=== PATIENT | male | born 1970 | race Caucasian/White ===

== ENCOUNTER 2019-04-04 07:23 | Inpatient (IN) | payer OTHER ==
[2019-04-04] MEDS ORDERED: Clindamycin/D5W 900 mg/50 ml Premix Bag ONE (07:57)
[2019-04-04] MEDS ORDERED: Levofloxacin 500 mg/D5W 100 ml Premix Bag ONE (07:57)
[2019-04-04 08:24] LABS: Hemoglobin 15.9 g/dL (14.0-18.0); Mean Corpuscular HGB CONC 33.9 g/dL (32.0-36.0); Mean Corpuscular Hemoglobin 28.8 pg (27.0-31.0); Mean Corpuscular Volume 84.8 fL (78.0-98.0); Mean Platelet Volume 9.1 fL (7.4-10.4); Platelet Count 198 thou/uL (130-400); RBC Distribution Width 12.4 % (11.5-14.5); Red Blood Cell (RBC) Count 5.54 mill/uL (4.70-6.10); White Blood Cell (WBC) Count 9.2 thou/uL (4.8-10.8)
[2019-04-04 08:50] LABS: Anion Gap 15 mmol/L (10-20); BUN (Urea Nitrogen) 15 mg/dL (8.9-20.6); Calc. Creatinine Clearance 244 mL/min (70-130); Calcium 9.2 mg/dL (7.8-10.44); Carbon Dioxide 23 mmol/L (22-29); Chloride 102 mmol/L (98-107); Estimated GFR-MDRD Greater than 90; Glucose 193 mg/dL (70-105); Potassium 4.3 mmol/L (3.5-5.1); Sodium 136 mmol/L (136-145)
[2019-04-04] MEDS ORDERED: Fentanyl 250 MCG/5 ML VIAL ONE (09:25)
[2019-04-04] MEDS ORDERED: Ketamine 50 MG/ML (10ML VIAL) ONE (09:25)
[2019-04-04] MEDS ORDERED: HYDROmorphone 2 MG/ML VIAL ONE (09:26)
[2019-04-04] MEDS ORDERED: Sodium Chloride 0.9% 10 ML ONE (09:28)
[2019-04-04] MEDS ORDERED: ePHEDrine/0.9% NaCl/PF SYRINGE 50 mg/10 ml ONE (09:32)
[2019-04-04] MEDS ORDERED: Lidocaine 1% PF 5 ML VIAL ONE (09:32)
[2019-04-04] MEDS ORDERED: PHENYLEPHRINE-NS 100 MCG/ML 10 ML SYRINGE ONE (09:32)
[2019-04-04] MEDS ORDERED: Dexamethasone 20 MG/5 ML VIAL ONE (09:32)
[2019-04-04] MEDS ORDERED: Ondansetron PF 4 MG/2 ML Vial ONE (09:32)
[2019-04-04] MEDS ORDERED: PROPOFOL 200 MG/20 ML VIAL ONE (09:32)
[2019-04-04] MEDS ORDERED: Rocuronium Bromide 10 MG/ML (10ML VIAL) ONE (09:32)
[2019-04-04] MEDS ORDERED: Lidocaine 4% Topical Sol 50 ML BOT ONE (09:34)
[2019-04-04] MEDS ORDERED: Phenylephrine HCL 10 MG/ML VIAL ONE (10:12)
[2019-04-04] MEDS ORDERED: SUGAMMADEX SODIUM 500 MG/5 ML VIAL ONE (10:37)
[2019-04-04] MEDS ORDERED: Fentanyl 100 MCG/2 ML VIAL ONE (11:31)
--- NOTE | 2019-04-04 12:04 | OP ---
DATE OF PROCEDURE: 04/04/2019 ASSOCIATE PROGRAMMER ANALYST: Sesar Doyle PA-C PROCEDURE PERFORMED: Attempted exploration of spinal fusion and attempted removal of hardware, attempted anterior cervical diskectomy and fusion, C3 through C5, interbody arthrodesis, intervertebral biomechanical device, local morselized autograft, demineralized bone matrix, attempted anterior titanium fixation, C3 through C5. Of note, procedure aborted. DESCRIPTION OF PROCEDURE: The patient was brought to the operating room and intubated. He was positioned supine with the head in modest extension on a gel-filled donut. It was immediately evident given the very large body habitus, the short and squat neck size and the positioning of the previous incision that the access would be quite difficult. We performed a longitudinal right-sided incision along the sternocleidomastoid muscle. We immediately encountered dense scar. We were able to dissect through the scar inferiorly to access the cervical plate, which was identified successfully. Above this in the soft tissues, the esophagus could not be freely mobilized from the surrounding soft tissues including the vascular structures. Extensive efforts were made to mobilize the esophagus, but we could not be convinced that we could adequately dissect the esophagus safely. Ligaclips was used in several locations for vascular structures adherent to the esophagus. I concluded that we could not access C3 through C5 safely given these superior adhesions of the esophagus and we elected therefore not to remove the plate or proceed with the procedure any further. The wound was then extensively irrigated and MAC hemostasis was secured. The wound was closed in anatomic layers over drain. Job ID: [id number]
[2019-04-04] MEDS ORDERED: HYDROcodone/Acetaminophen 10/325 mg Tablet ONE (12:19)
[2019-04-04] MEDS ORDERED: tiZANidine HCl 4 MG TAB PO PRN (13:35)
[2019-04-04] MEDS ORDERED: Promethazine HCl 12.5 MG SUPP PR PRN (13:35)
[2019-04-04] MEDS ORDERED: Milk Of Magnesia 30 ML UDCUP PO PRN (13:35)
[2019-04-04] MEDS ORDERED: Mag-Al 1200 mg/1200 mg/30 ML UDCUP PO PRN (13:35)
[2019-04-04] MEDS ORDERED: diphenhydrAMINE 50 MG/ML VIAL IVP PRN (13:35)
[2019-04-04] MEDS ORDERED: HYDROcodone/Acetaminophen 10/325 mg Tablet PO PRN (13:35)
[2019-04-04] MEDS ORDERED: Morphine 4 MG/ML VIAL SLOW IVP PRN (13:35)
[2019-04-04] MEDS ORDERED: traMADol HCl 50 MG TAB PO PRN ×2 (13:35)
[2019-04-04] MEDS ORDERED: Promethazine 25 MG TAB PO PRN (13:35)
[2019-04-04] MEDS ORDERED: Ondansetron PF 4 MG/2 ML Vial IVP PRN (13:35)
[2019-04-04] MEDS ORDERED: Promethazine HCl 25 MG/ML VIAL IM PRN (13:35)
[2019-04-04] MEDS ORDERED: diphenhydrAMINE 25 MG CAP PO PRN (13:35)
[2019-04-04] MEDS ORDERED: Morphine 2 MG/ML SYRINGE SLOW IVP PRN (13:38)
[2019-04-04 14:05] VITALS: BMI 47.5
[2019-04-04] MEDS ORDERED: Insulin Regular 300 UNITS/3 ML VIAL SC PRN ×2 (14:11)
[2019-04-04] MEDS ORDERED: Dextrose 50% Abboject 50 ML SYRINGE SLOW IVP PRN (14:11)
[2019-04-04] MEDS ORDERED: Dextrose 5% in Water 1,000 ML IV PRN (14:11)
[2019-04-04] MEDS: Sodium Chloride 0.9% 1,000 ML IV SCH (15:54)
[2019-04-04] MEDS: Clindamycin/D5W 900 MG in Premix Bag 1 BAG IVPB SCH ×2 (15:55→22:59)
[2019-04-04] MEDS: HYDROcodone/Acetaminophen 10/325 mg Tablet PO PRN ×2 (15:59→22:58)
[2019-04-04] MEDS: metFORMIN 500 MG TAB PO SCH (16:01)
[2019-04-04] MEDS: Insulin Regular 300 UNITS/3 ML VIAL SC PRN (17:54)
[2019-04-04] MEDS ORDERED: Insulin Glargine 60 UNITS in Pre-Filled Syringe 1 EACH SC SCH (21:00)
[2019-04-04] MEDS ORDERED: Insulin Glargine 80 UNITS in Pre-Filled Syringe 1 EACH SC SCH (21:00)
[2019-04-04] MEDS ORDERED: CYCLOBENZAPRINE PO SCH (21:00)
[2019-04-04] MEDS ORDERED: [UNRECOGNIZED DRUG - OTHER] PO SCH (21:00)
[2019-04-04] MEDS ORDERED: Insulin Glargine 35 UNITS in Pre-Filled Syringe 1 EACH SC SCH (21:00)
[2019-04-04] MEDS: Pregabalin 50 MG CAP PO SCH (21:42)
--- NOTE | 2019-04-04 22:33 | PDOC.HOSPP ---
- Subjective Encounter Date: 04/04/19 Encounter Time: 15:00 Subjective: Patient seen and examined for med mngt. No CP or SOB. Pain controlled. Takes 80 units of Lantus BID. No new complaints. No overnight events - Objective Vital Signs & Weight: Vital Signs (12 hours) Temp Pulse Resp BP Pulse Ox 04/04/19 19:50 98.7 F 90 16 156/74 H 92 L 04/04/19 13:00 97.7 F 90 20 164/92 H 93 L Weight Weight 350 lb Result Diagrams: 04/04/19 08:05 04/04/19 08:05 Additional Labs: Accuchecks 04/04/19 04/04/19 21:05 17:33 POC Glucose 271 H 267 H EKG Reviewed by me: Yes (SR) Hospitalist ROS - Review of Systems Respiratory: denies: cough, dry, shortness of breath, hemoptysis, SOB with excertion, pleuritic pain, sputum, wheezing, other Cardiovascular: denies: chest pain, palpitations, orthopnea, paroxysmal noc. dyspnea, edema, light headedness, other - Medication Medications: Active Medications Generic Name Dose Route Start Last Admin Trade Name Freq PRN Reason Stop Dose Admin Hydrocodone Bitart/Acetaminophen 2 tab 04/04/19 13:35 04/04/19 15:59 [place] 10/325 PO 2 tab Q4H PRN Administration PAIN (4-6) Fentanyl 25 mcg 04/04/19 13:45 04/04/19 17:50 Duragesic TD 25 mcg Q48H EVELIN Administration Sodium Chloride 1,000 mls @ 75 mls/hr 04/04/19 13:35 04/04/19 15:54 Normal Saline 0.9% IV Not Given .[id number] EVELIN Clindamycin Phosphate/Dextrose 50 mls @ 100 mls/hr 04/04/19 16:00 04/04/19 15 :55 900 mg/ Device IVPB 50 mls 0000,0800,1600 EVELIN Administration Insulin Glargine 60 units/ 0.6 mls @ 0 mls/hr 04/04/19 21:00 04/04/19 21:43 Miscellaneous Medication SC 0.6 mls BID EVELIN Administration Insulin Human Regular 0 units 04/04/19 14:11 04/04/19 21:43 Humulin R SC 3 unit .BEDTIME SLIDING SC PRN Administration Bedtime Correctional Scale Insulin Human Regular 0 units 04/04/19 14:37 04/04/19 17:54 Humulin R SC 9 unit .AGGRESSIVE SLIDING PRN Administration Aggressive Correctional Scale Metformin HCl 1,000 mg 04/04/19 17:00 04/04/19 16:01 Glucophage PO 1,000 mg BID-WM EVELIN Administration Pregabalin 200 mg 04/04/19 21:00 04/04/19 21:42 Lyrica PO 200 mg BID EVELIN Administration - Exam General Appearance: NAD Heart: RRR, no gallops Respiratory: CTAB, no rales Gastrointestinal: soft, normal bowel sounds Extremities: no edema Hosp A/P - Plan DVT proph w/SCDs DM2 HLD Chronic pain Morbid obesity BMI 47.5 PLAN: Reduce Lantus dose to 60 units BID tonight - will increase to home dose in AM Cont Statins Pain control PT IS DVT prophylaxis
[2019-04-05] MEDS: Sodium Chloride 0.9% 1,000 ML IV SCH (01:24)
[2019-04-05] MEDS: Insulin Regular 300 UNITS/3 ML VIAL SC PRN ×2 (05:21→12:33)
[2019-04-05] MEDS: HYDROcodone/Acetaminophen 10/325 mg Tablet PO PRN ×3 (05:24→14:52)
[2019-04-05] MEDS ORDERED: Tamsulosin HCl 0.4 MG CAP PO SCH (06:00)
[2019-04-05] MEDS: Clindamycin/D5W 900 MG in Premix Bag 1 BAG IVPB SCH (08:40)
[2019-04-05] MEDS: Pregabalin 50 MG CAP PO SCH (08:41)
[2019-04-05] MEDS: metFORMIN 500 MG TAB PO SCH (08:41)
[2019-04-05] MEDS ORDERED: Insulin Glargine 80 UNITS in Pre-Filled Syringe 1 EACH SC SCH (09:00)
[2019-04-05] MEDS ORDERED: Insulin Glargine 35 UNITS in Pre-Filled Syringe 1 EACH SC SCH (09:00)
[2019-04-05] MEDS ORDERED: INSULIN GLARGINE HUM REC ANLOG 80 UNIT SC SCH (09:00)
[2019-04-05] MEDS ORDERED: Atorvastatin Calcium 20 MG TAB PO SCH (09:00)
[2019-04-05 12:23] VITALS: BP 128/83; TEMP 97.9
--- NOTE | 2019-04-06 03:46 | DIS ---
DATE OF ADMISSION: 04/04/2019 DATE OF DISCHARGE: 04/05/2019 The patient is a 48-year-old male, recently seen in our office for progressive neck pain and symptoms of cervical myelopathy, and found to have significant stenosis above his prior fusion. The patient was brought to the operating room and attempt at removal of hardware and extension of his anterior cervical fusion was attempted. However, secondary to encountering dense scar across cervical plate, they were unable to dissect the esophagus safely and the surgery was subsequently aborted. KAI drain was placed intraoperatively. The patient was transitioned to the Med/Surg floor, where his pain was well controlled with p.o. medications. He was tolerating a regular diet and he was voiding appropriately. The patient had minimal output over the drain only, 25 mL out overnight. He has remained afebrile overnight. I visited the patient postoperative day #1. He had no significant complaints. We will plan to remove the drain and dismiss to home. I have discussed home care and precautions. We will follow up with the patient in 2 weeks. At that time, we may consider further scheduling for surgical decompression from posterior approach. Job ID: [id number]
== END 2019-04-05 14:50 | disposition home or self-care (01) | DRG 501 ==
LOC: EDBD → SURG A 07:26 → SURG B 13:29
PROVIDERS: ADMIT Neurological Surgery; ATTEND Neurological Surgery
PROC: 0KJX0ZZ Inspection of Upper Muscle, Open Approach (ICD-10-PCS; principal; 2019-04-04)
DX: M47.12 Other spondylosis with myelopathy, cervical region (principal); Z68.42 Body mass index [BMI] 45.0-49.9, adult; Z88.0 Allergy status to penicillin; E66.01 Morbid (severe) obesity due to excess calories; G89.29 Other chronic pain; E11.9 Type 2 diabetes mellitus without complications
CPT/HCPCS: 36416; 76000; 80048; 85027; 93005; 93010; J0131; J1100; J1170; J1815; J1956; J2001; J2370; J2405; J2704; J3010; J3490

== ENCOUNTER 2019-05-09 07:38 | Inpatient (IN) | payer MEDICARE, OTHER ==
[2019-05-06 13:20] VITALS: BMI 46.0
[2019-05-09] MEDS ORDERED: Ondansetron PF 4 MG/2 ML Vial ONE (09:23)
[2019-05-09] MEDS ORDERED: Rocuronium Bromide 10 MG/ML (10ML VIAL) ONE (09:23)
[2019-05-09] MEDS ORDERED: Glycopyrrolate 0.2 MG/ML 5 ML SYRINGE ONE (09:23)
[2019-05-09] MEDS ORDERED: PHENYLEPHRINE-NS 100 MCG/ML 10 ML SYRINGE ONE (09:23)
[2019-05-09] MEDS ORDERED: PROPOFOL 200 MG/20 ML VIAL ONE (09:23)
[2019-05-09 09:37] LABS: #Eosinphils 0.1 thou/uL (0.0-0.7); #Lymphocytes 2.3 thou/uL (1.20-3.40); #Monocytes 0.5 thou/uL (0.11-0.59); %Basophils 0.4 % (0.0-1.0); %Eosinophils 1.7 % (0.0-10.0); %Lymphocytes 29.1 % (21.0-51.0); %Monocytes 6.1 % (0.0-10.0); %Neutrophils 62.7 % (42.0-75.0); Hemoglobin 15.8 g/dL (14.0-18.0); Mean Corpuscular Hemoglobin 26.3 pg (27.0-31.0); Mean Corpuscular Volume 84.8 fL (78.0-98.0); Platelet Count 214 thou/uL (130-400); RBC Distribution Width 12.5 % (11.5-14.5); White Blood Cell (WBC) Count 7.9 thou/uL (4.8-10.8)
[2019-05-09 09:42] LABS: Anion Gap 10 mmol/L (10-20); BUN (Urea Nitrogen) 13 mg/dL (8.9-20.6); Calc. Creatinine Clearance 247 mL/min (70-130); Calcium 9.5 mg/dL (7.8-10.44); Carbon Dioxide 30 mmol/L (22-29); Chloride 103 mmol/L (98-107); Estimated GFR-MDRD Greater than 90; Glucose 138 mg/dL (70-105); Potassium 4.3 mmol/L (3.5-5.1); Sodium 139 mmol/L (136-145)
[2019-05-09] MEDS ORDERED: Levofloxacin 500 mg/D5W 100 ml Premix Bag ONE (09:59)
[2019-05-09] MEDS ORDERED: Clindamycin/D5W 900 mg/50 ml Premix Bag ONE (09:59)
[2019-05-09] MEDS ORDERED: Bacitracin Zinc Ointment 30 gm TUBE ONE (10:45)
[2019-05-09] MEDS ORDERED: Fentanyl 100 MCG/2 ML VIAL ONE ×4 (10:51→14:05)
[2019-05-09] MEDS ORDERED: Midazolam HCl 2 mg/2 ml Vial ONE ×3 (10:54→15:05)
[2019-05-09] MEDS ORDERED: Ondansetron HCl/PF 4 MG/2 ML Vial IVP PRN (13:25)
[2019-05-09] MEDS ORDERED: Promethazine HCl 25 MG/ML VIAL SLOW IVP PRN (13:25)
[2019-05-09] MEDS ORDERED: Promethazine HCl 25 MG/ML VIAL IM PRN ×3 (13:25→19:35)
[2019-05-09] MEDS ORDERED: diphenhydrAMINE 25 MG CAP PO PRN (13:43)
[2019-05-09] MEDS ORDERED: Mag-Al 1200 mg/1200 mg/30 ML UDCUP PO PRN (13:43)
[2019-05-09] MEDS ORDERED: Ondansetron PF 4 MG/2 ML Vial IVP PRN ×2 (13:43→19:35)
[2019-05-09] MEDS ORDERED: traMADol HCl 50 MG TAB PO PRN ×2 (13:43)
[2019-05-09] MEDS ORDERED: HYDROcodone/Acetaminophen 10/325 mg Tablet PO PRN ×2 (13:43)
[2019-05-09] MEDS ORDERED: diphenhydrAMINE 50 MG/ML VIAL IVP PRN ×2 (13:43→19:35)
[2019-05-09] MEDS ORDERED: Promethazine 25 MG TAB PO PRN (13:43)
[2019-05-09] MEDS ORDERED: Morphine 2 MG/ML SYRINGE SLOW IVP PRN (13:43)
[2019-05-09] MEDS ORDERED: HYDROmorphone 2 MG/ML VIAL ONE (14:34)
[2019-05-09] MEDS ORDERED: Ketamine 50 MG/ML (10ML VIAL) ONE (15:03)
[2019-05-09] MEDS: Morphine 4 MG/ML VIAL SLOW IVP PRN ×4 (16:06→19:23)
[2019-05-09] MEDS ORDERED: Milk Of Magnesia 30 ML UDCUP PO PRN (16:28)
[2019-05-09] MEDS: Sodium Chloride 0.9% 1,000 ML IV SCH (16:41)
--- NOTE | 2019-05-09 16:46 | OP ---
DATE OF PROCEDURE: 05/09/2019 LIBRARY CLERICAL ASSISTANT: Kamala Kothari PA-C PROCEDURES PERFORMED: Posterior cervical laminectomy C3 through C5, posterolateral arthrodesis, lateral mass screw instrumentation, demineralized bone matrix, and local morselized autograft, C3 through C5. DESCRIPTION OF PROCEDURE: The patient was brought to the operating room and intubated. He was rolled in a prone position on a gel-filled chest rolls with the head fixed in a Emily quantitative equity head in a neutral position. Because it was extremely large body habitus, positioning and the surgery itself were extremely difficult. A midline incision was made exposing the upper cervical spine. X-rays could not localize even the C2 level and we therefore exposed to the base of the skull to confirm the level. In this fashion, we could identify C1 and C2 from direct visualization. We then exposed C3 through C5 bilaterally. We performed C5, C4, and inferior C3 laminectomies, completely decompressing the neural elements. Lateral mass screws were then placed at C3, C4, and C5 bilaterally. The amy was secured between the screws, connected by nuts, which were final tightened. The wound was then extensively irrigated. MAC hemostasis was secured. A combination of demineralized bone matrix and local morselized autograft were laid over the lamina posterolateral surfaces for the purpose of arthrodesis. Vancomycin powder was applied and the wound was then closed in anatomic layers. Job ID: [id number]
[2019-05-09] MEDS ORDERED: Dextrose 50% Abboject 50 ML SYRINGE SLOW IVP PRN (17:03)
[2019-05-09] MEDS ORDERED: Dextrose 5% in Water 1,000 ML IV PRN (17:03)
[2019-05-09] MEDS ORDERED: Acetaminophen 650 MG Suppository PR PRN (17:04)
[2019-05-09] MEDS ORDERED: Acetaminophen 325 MG TAB PO PRN (17:04)
[2019-05-09] MEDS: tiZANidine HCl 4 MG TAB PO PRN (17:53)
[2019-05-09] MEDS ORDERED: Clindamycin/D5W 900 MG in Premix Bag 1 BAG IVPB SCH (18:00)
[2019-05-09] MEDS: metFORMIN 500 MG TAB PO SCH (18:00)
--- NOTE | 2019-05-09 18:10 | CON ---
DATE OF CONSULTATION: 05/09/2019 TIME OF ASSESSMENT: 1600. REASON FOR CONSULTATION: Medical management. HISTORY OF PRESENT ILLNESS: Mr. Blake is a 48-year-old gentleman, who is status post cervical spine surgery consisting of posterior cervical laminectomy of C3- C5. We have been consulted for medical management due to history of diabetes mellitus, hyperlipidemia, and obesity. Currently, the patient states he does have some discomfort in his neck, but this is being controlled with medications. He has felt nauseated, but it was tolerable. He denies any vomiting. The patient states he has felt well in recent days. Denies any issues with chest pain or shortness of breath. Has been moving his bowels as normal up until yesterday. Denies having any urinary symptoms. Has not had any recent fevers, chills, or sweats. Overall, he is without any major complaints. PAST MEDICAL HISTORY: 1. Hyperlipidemia. 2. Diabetes mellitus, on insulin. 3. Chronic neck pain. 4. Morbid obesity. PAST SURGICAL HISTORY: Cervical spine surgeries in the past. SOCIAL HISTORY: The patient denies any tobacco use, alcohol consumption, or illicit drug use. ALLERGIES: Penicillin and adhesives CURRENT MEDICATIONS: 1. Atorvastatin. 2. Invokana. 3. Celebrex. 4. Amrix. 5. Hydrocodone. 6. Fentanyl patch. 7. Insulin Glargine. 8. Metformin. 9. Lyrica. PHYSICAL EXAMINATION: GENERAL: The patient appears well developed, well nourished, in no acute distress. He is resting in bed, lying on his left side. Wound drain in place. VITAL SIGNS: HR 78, BP 125/77, RR 18, O2 sat 93% on 2L O2 by NC HEENT: Normocephalic and atraumatic. Pupils are equal, round, and reactive to light. Sclerae without icterus. Oropharynx is clear. NECK: Notable for surgical incision with a drain in place. No swelling. No discharge or active bleeding surrounding the drain. LUNGS: Clear to auscultation bilaterally. CARDIAC: Regular rate and rhythm. ABDOMEN: Soft, obese, nontender, nondistended. Normoactive bowel sounds present. No guarding or rigidity. No renal angle tenderness. EXTREMITIES: No lower leg swelling or edema. NEUROLOGIC: Alert and oriented x3. SKIN: Warm and dry. LABORATORY DATA: White blood count 7.9, hemoglobin 15.8, hematocrit 50.9, and platelets 214. Sodium 139, potassium 4.3, BUN 13, creatinine 0.78, GFR greater than 90, glucose 130, and calcium 9.5. IMAGING DATA: None. IMPRESSION AND PLAN: Mr. Blaek is a 48-year-old gentleman, who is status post cervical spine surgery as mentioned above, referred to us for medical management. He has a history of diabetes mellitus, hyperlipidemia, and obesity. We will continue to monitor blood glucose, and insulin sliding scale has been initiated. Blood pressure is within normal limits. Regular diet will be changed to a consistent carb diet. We will obtain repeat laboratory studies in the morning. The patient's home medications have been restarted by primary team. We will give famotidine b.i.d. for GI prophylaxis. DVT prophylaxis with mechanical SCDs. The patient is full code. His surrogate decision maker is his brother, Andrey Kirkland. We will give ondansetron for nausea. Thank you for this consultation. We will continue to follow the patient with you. Job ID: [id number] [facility]ITAL[facility]
[2019-05-09] MEDS ORDERED: Zolpidem Tartrate 5 MG TAB PO PRN (19:35)
[2019-05-09] MEDS ORDERED: diphenhydrAMINE 50 MG/ML VIAL IM PRN (19:35)
[2019-05-09] MEDS ORDERED: Naloxone HCl 0.4 mg/ml Vial IV PRN (19:35)
[2019-05-09] MEDS ORDERED: Communication Order-Pharmacy FS SCH (19:45)
[2019-05-09] MEDS: fentaNYL Citrate/PF 2,000 MCG in Sodium Chloride 0.9% 60 ML IV PRN (20:31)
[2019-05-09] MEDS: Clindamycin/D5W 900 MG in Premix Bag 1 BAG IVPB SCH (20:37)
[2019-05-09] MEDS: HYDROcodone/Acetaminophen 10/325 mg Tablet PO SCH (20:40)
[2019-05-09] MEDS ORDERED: Pregabalin 50 MG CAP PO SCH (21:00)
[2019-05-09] MEDS ORDERED: Insulin Glargine 80 UNITS in Pre-Filled Syringe 1 EACH SC SCH (21:00)
[2019-05-10] MEDS: tiZANidine HCl 4 MG TAB PO PRN ×4 (01:13→22:03)
[2019-05-10 04:50] LABS: #Lymphocytes 1.6 thou/uL (1.20-3.40); #Monocytes 0.9 thou/uL (0.11-0.59); #Neutrophils 9.1 thou/uL (1.40-6.50); %Eosinophils 0.2 % (0.0-10.0); %Lymphocytes 13.5 % (21.0-51.0); %Monocytes 7.6 % (0.0-10.0); %Neutrophils 78.7 % (42.0-75.0); Hemoglobin 13.9 g/dL (14.0-18.0); Mean Corpuscular HGB CONC 30.2 g/dL (32.0-36.0); Mean Corpuscular Hemoglobin 26.2 pg (27.0-31.0); Mean Corpuscular Volume 86.7 fL (78.0-98.0); Mean Platelet Volume 8.7 fL (7.4-10.4); Platelet Count 190 thou/uL (130-400); RBC Distribution Width 12.7 % (11.5-14.5); White Blood Cell (WBC) Count 11.6 thou/uL (4.8-10.8)
[2019-05-10] MEDS: Sodium Chloride 0.9% 1,000 ML IV SCH ×2 (05:02→16:51)
[2019-05-10] MEDS: Clindamycin/D5W 900 MG in Premix Bag 1 BAG IVPB SCH ×3 (05:02→20:53)
[2019-05-10] MEDS: Tamsulosin HCl 0.4 MG CAP PO SCH (05:03)
[2019-05-10 05:07] LABS: Anion Gap 12 mmol/L (10-20); BUN (Urea Nitrogen) 12 mg/dL (8.9-20.6); Calc. Creatinine Clearance 297 mL/min (70-130); Calcium 8.6 mg/dL (7.8-10.44); Carbon Dioxide 27 mmol/L (22-29); Chloride 103 mmol/L (98-107); Estimated GFR-MDRD Greater than 90; Glucose 96 mg/dL (70-105); Potassium 4.1 mmol/L (3.5-5.1); Sodium 138 mmol/L (136-145)
--- NOTE | 2019-05-10 06:16 | PRG ---
DATE OF SERVICE: 05/10/2019 SUBJECTIVE: The patient is postoperative day #1, status post C3-C5 posterior decompression and fusion. Following the surgery, he was transitioned to the Med/Surg floor. The patient has a known history of high-dose narcotic use prior to the surgery, had issues with pain control over the first night. Anesthesia was consulted and placed a FOCUSED FACTORY MANAGER. The patient has improved at this time, but reports he has significant pain with any type of mobilization. He is moving his extremities fine in the bed. He has no new deficits. His KAI had 50 mL out over the first night. He is tolerating a regular diet but had some issues with voiding. OBJECTIVE: On exam this morning, there was a small amount of bright red blood in the KAI drain. He has free active range of motion of all extremities. No focal motor weakness. Incisions are otherwise clean, dry, and intact. PLAN: We will continue to work on pain control and mobilization. Will go ahead and bladder scan with prn straight cath if needed. I anticipate home over the next few days. I will go ahead and verify his home pain medications with his pharmacy so we can transition back to PO medications at some point. Job ID: [id number] [facility]
[2019-05-10] MEDS: Atorvastatin Calcium 20 MG TAB PO SCH (07:32)
[2019-05-10] MEDS: fentaNYL Citrate/PF 2,000 MCG in Sodium Chloride 0.9% 60 ML IV PRN (08:25)
[2019-05-10] MEDS ORDERED: Insulin Glargine 80 UNITS in Pre-Filled Syringe 1 EACH SC SCH (09:00)
[2019-05-10] MEDS ORDERED: INVOKANA PO SCH (09:00)
[2019-05-10] MEDS: metFORMIN 500 MG TAB PO SCH ×2 (09:45→18:02)
[2019-05-10] MEDS: HYDROcodone/Acetaminophen 10/325 mg Tablet PO SCH ×2 (09:46→20:51)
[2019-05-10] MEDS: HYDROmorphone 10 mg/100 ml CADD IV PRN (13:56)
[2019-05-10] MEDS: Acetaminophen 500 MG TAB PO SCH ×2 (13:59→18:02)
[2019-05-10] MEDS ORDERED: Insulin Glargine 25 UNITS in Pre-Filled Syringe 1 EACH SC SCH (21:00)
[2019-05-10] MEDS ORDERED: AMRIX PO SCH (21:00)
[2019-05-10] MEDS: diphenhydrAMINE 25 MG CAP PO PRN (22:03)
[2019-05-11] MEDS: Acetaminophen 500 MG TAB PO SCH ×4 (00:30→18:10)
--- NOTE | 2019-05-11 00:33 | PDOC.HOSPP ---
- Subjective Encounter Date: 05/10/19 Encounter Time: 17:00 Subjective: Patient seen and examined for med mngt. Poor appetite. No CP/SOB. No new complaints. No overnight events - Objective Vital Signs & Weight: Vital Signs (12 hours) Temp Pulse Resp BP Pulse Ox 05/10/19 23:21 98.5 F 83 16 105/65 92 L 05/10/19 22:03 153/89 H 05/10/19 19:28 98.2 F 70 16 93/57 L 93 L 05/10/19 15:24 97.4 F L 80 18 122/77 93 L Weight Weight 340 lb I&O: 05/09/19 05/10/19 05/11/19 06:59 06:59 06:59 Intake Total 2580 2350 Output Total 80 2730 Balance 2500 -380 Result Diagrams: 05/10/19 04:33 05/10/19 04:33 Additional Labs: Accuchecks 05/10/19 05/10/19 05/10/19 20:55 15:50 10:52 POC Glucose 128 H 98 101 05/10/19 05:11 POC Glucose 84 EKG Reviewed by me: Yes (SR) Hospitalist ROS - Review of Systems Respiratory: denies: cough, dry, shortness of breath, hemoptysis, SOB with excertion, pleuritic pain, sputum, wheezing, other Cardiovascular: denies: chest pain, palpitations, orthopnea, paroxysmal noc. dyspnea, edema, light headedness, other Gastrointestinal: denies: nausea, vomiting, abdominal pain, diarrhea, constipation, melena, hematochezia, other - Medication Medications: Active Medications Generic Name Dose Route Start Last Admin Trade Name Freq PRN Reason Stop Dose Admin Acetaminophen 650 mg 05/09/19 17:04 05/10/19 01:12 Tylenol PO 650 mg Q4H PRN Administration Headache/Fever/Mild Pain (1-3) Acetaminophen 1,000 mg 05/10/19 13:00 05/11/19 00:30 Tylenol PO 05/13/19 13:01 1,000 mg Q6H EVELIN Administration Hydrocodone Bitart/Acetaminophen 1 tab 05/09/19 21:00 05/10/19 20:51 [place] 10/325 PO Not Given BID EVELIN Atorvastatin Calcium 20 mg 05/10/19 09:00 05/10/19 07:32 Lipitor PO 20 mg QAM EVELIN Administration Diphenhydramine HCl 25 mg 05/09/19 19:35 05/10/19 22:03 Benadryl PO 25 mg Q3H PRN Administration Itching Hydromorphone HCl 0 mg 05/10/19 12:06 05/10/19 13:56 Dilaudid Cadd IV 10 mg INF PRN Administration Pain Sodium Chloride 1,000 mls @ 75 mls/hr 05/09/19 13:43 05/10/19 16:51 Normal Saline 0.9% IV Not Given .[id number] EVELIN Clindamycin Phosphate/Dextrose 50 mls @ 100 mls/hr 05/09/19 20:00 05/10/19 20 :53 900 mg/ Device IVPB 50 mls 0400,1200,2000 EVELIN Administration Metformin HCl 1,000 mg 05/09/19 17:00 05/10/19 18:02 Glucophage PO 1,000 mg BID-WM EVELIN Administration Tamsulosin HCl 0.4 mg 05/10/19 06:00 05/10/19 05:03 Flomax PO 0.4 mg 0600 EVELIN Administration Tizanidine HCl 4 mg 05/09/19 13:43 05/10/19 22:03 Zanaflex PO 4 mg Q6H PRN Administration MUSCLE SPASM - Exam General Appearance: NAD Neck: supple, no JVD Heart: RRR, no gallops Respiratory: no wheezes, no rales, no ronchi Gastrointestinal: non-tender, non-distended, normal bowel sounds Extremities: no cyanosis, no clubbing Hosp A/P - Plan DVT proph w/SCDs DM2 HLD Chronic pain Morbid obesity BMI 46.1 PLAN: Hold Lantus due to poor appetite Cont sliding scale Cont Metformin Cont Statins
[2019-05-11] MEDS: HYDROmorphone 10 mg/100 ml CADD IV PRN ×3 (00:37→23:00)
[2019-05-11] MEDS: Clindamycin/D5W 900 MG in Premix Bag 1 BAG IVPB SCH ×3 (03:47→20:25)
[2019-05-11] MEDS: diphenhydrAMINE 25 MG CAP PO PRN ×5 (03:54→20:24)
[2019-05-11] MEDS: tiZANidine HCl 4 MG TAB PO PRN ×3 (03:54→18:16)
[2019-05-11] MEDS: Sodium Chloride 0.9% 1,000 ML IV SCH ×2 (03:59→20:25)
[2019-05-11] MEDS: Tamsulosin HCl 0.4 MG CAP PO SCH (06:30)
--- NOTE | 2019-05-11 07:16 | PRG ---
DATE OF SERVICE: 05/11/2019 SUBJECTIVE: The patient is postop day #2, status post posterior decompression and fusion at C3 through C5. Yesterday, his PEDIATRIC SOCIAL WORKER was adjusted by anesthesia and the patient reports he is feeling much better today. He is still mobilizing quite slowly. He also initially had developed urinary retention, but this is also improved and he is now urinating without any difficulty. His KAI had 90 mL of output overnight. OBJECTIVE: On exam this morning, the patient is awake, appears to be in no acute distress when lying in the bed, but does have significant pain in the back of the head and neck with any sort of movement. Incision is clean, dry, and intact. He is moving all extremities in the bed with no focal weakness. PLAN: We will continue to work on pain control and mobilize appropriately with the assistance of PT and OT. We will monitor his KAI drain closely and will leave today. I anticipate home in the next 1 to 2 days. Job ID: [id number]
--- NOTE | 2019-05-11 09:14 | PRG ---
DATE OF SERVICE: 05/11/2019 Mr. Blake is doing reasonably well considering the magnitude of surgery. Neck pain has been an issue and has required a CAR DUMPER. This is complicated by his premorbid narcotic dependent use. His KAI drain output has been relatively modest, but we have left it for one more day. He has had some urinary retention requiring a Lopez and we will try removal of Lopez either later today or tomorrow. I am optimistic for progressive mobilization and hopefully home in the next couple of days. Job ID: [id number]
[2019-05-11] MEDS: Atorvastatin Calcium 20 MG TAB PO SCH (09:38)
[2019-05-11] MEDS: metFORMIN 500 MG TAB PO SCH ×2 (09:38→18:10)
[2019-05-11] MEDS: Pregabalin 50 MG CAP PO SCH (09:38)
[2019-05-11] MEDS: HYDROcodone/Acetaminophen 10/325 mg Tablet PO SCH (09:39)
[2019-05-11] MEDS: Insulin Glargine 15 UNITS in Pre-Filled Syringe 1 EACH SC SCH (09:57)
[2019-05-11] MEDS: fentaNYL 100 mcg/hour Patch TD SCH (11:28)
[2019-05-11] MEDS: HumaLOG 300 UNITS/3 ML VIAL SC PRN (16:05)
[2019-05-11] MEDS: Insulin Glargine 10 UNITS in Pre-Filled Syringe 1 EACH SC SCH (21:34)
--- NOTE | 2019-05-11 22:14 | PDOC.HOSPP ---
- Subjective Encounter Date: 05/11/19 Encounter Time: 10:45 Subjective: Patient seen and examined for med mngt. On ROLL SCALE MAN for pain control. No CP/SOB. No new complaints. No overnight events - Objective Vital Signs & Weight: Vital Signs (12 hours) Temp Pulse Resp BP BP Pulse Ox 05/11/19 19:47 98.7 F 61 16 91/57 L 93 L 05/11/19 15:27 98.4 F 78 20 97/61 95 05/11/19 11:25 98.4 F 90 16 111/64 94 L Weight Weight 340 lb I&O: 05/10/19 05/11/19 05/12/19 06:59 06:59 06:59 Intake Total 2580 3960 2930 Output Total 80 4320 1205 Balance 2500 -360 1725 Result Diagrams: 05/10/19 04:33 05/10/19 04:33 Additional Labs: Accuchecks 05/11/19 05/11/19 05/11/19 20:45 15:36 11:21 POC Glucose 176 H 161 H 196 H 05/11/19 05/11/19 05:19 02:21 POC Glucose 139 H 107 Hospitalist ROS - Review of Systems Respiratory: denies: cough, dry, shortness of breath, hemoptysis, SOB with excertion, pleuritic pain, sputum, wheezing, other Cardiovascular: denies: chest pain, palpitations, orthopnea, paroxysmal noc. dyspnea, edema, light headedness, other - Medication Medications: Active Medications Generic Name Dose Route Start Last Admin Trade Name Freq PRN Reason Stop Dose Admin Acetaminophen 1,000 mg 05/10/19 13:00 05/11/19 18:10 Tylenol PO 05/13/19 13:01 1,000 mg Q6H EVELIN Administration Atorvastatin Calcium 20 mg 05/10/19 09:00 05/11/19 09:38 Lipitor PO 20 mg QAM EVELIN Administration Diphenhydramine HCl 25 mg 05/09/19 19:35 05/11/19 20:24 Benadryl PO 25 mg Q3H PRN Administration Itching Fentanyl 100 mcg 05/11/19 11:00 05/11/19 11:28 Duragesic TD 100 mcg Q3D EVELIN Administration Hydromorphone HCl 0 mg 05/10/19 12:06 05/11/19 12:07 Dilaudid Cadd IV 10 mg INF PRN Administration Pain Sodium Chloride 1,000 mls @ 75 mls/hr 05/09/19 13:43 05/11/19 20:25 Normal Saline 0.9% IV Not Given .[id number] EVELIN Clindamycin Phosphate/Dextrose 50 mls @ 100 mls/hr 05/09/19 20:00 05/11/19 20 :25 900 mg/ Device IVPB 50 mls 0400,1200,2000 EVELIN Administration Insulin Glargine 15 units/ 0.15 mls @ 0 mls/hr 05/11/19 09:00 05/11/19 09:57 Miscellaneous Medication SC 0.15 mls QAM EVELIN Administration Insulin Glargine 10 units/ 0.1 mls @ 0 mls/hr 05/11/19 21:00 05/11/19 21:34 Miscellaneous Medication SC 0.1 mls HS EVELIN Administration Insulin Human Lispro 0 units 05/09/19 17:03 05/11/19 16:05 Humalog SC 2 unit .MODERATE SLIDING SC PRN Administration Moderate Correctional Scale Metformin HCl 1,000 mg 05/09/19 17:00 05/11/19 18:10 Glucophage PO 1,000 mg BID-WM EVELIN Administration Pregabalin 200 mg 05/11/19 09:00 05/11/19 09:38 Lyrica PO 200 mg QAM EVELIN Administration Tamsulosin HCl 0.4 mg 05/10/19 06:00 05/11/19 06:30 Flomax PO 0.4 mg 0600 EVELIN Administration Tizanidine HCl 4 mg 05/09/19 13:43 05/11/19 18:16 Zanaflex PO 4 mg Q6H PRN Administration MUSCLE SPASM - Exam General Appearance: NAD Heart: RRR, no gallops Respiratory: no wheezes, no rales, no ronchi Gastrointestinal: non-tender, non-distended, normal bowel sounds Extremities: no cyanosis Hosp A/P - Plan DVT proph w/SCDs DM2 HLD Chronic pain Morbid obesity BMI 46.1 PLAN: Restart Lantus at 15 units QAM and 10 units HS Cont sliding scale with Metformin Cont Statins
[2019-05-12] MEDS: Acetaminophen 500 MG TAB PO SCH ×4 (00:53→18:03)
[2019-05-12] MEDS: tiZANidine HCl 4 MG TAB PO PRN ×3 (00:53→18:03)
[2019-05-12] MEDS: diphenhydrAMINE 25 MG CAP PO PRN ×4 (00:53→18:03)
[2019-05-12] MEDS: Clindamycin/D5W 900 MG in Premix Bag 1 BAG IVPB SCH (03:28)
[2019-05-12] MEDS: Tamsulosin HCl 0.4 MG CAP PO SCH (06:08)
[2019-05-12] MEDS: HumaLOG 300 UNITS/3 ML VIAL SC PRN ×2 (06:13→18:03)
--- NOTE | 2019-05-12 09:12 | PRG ---
DATE OF SERVICE: 05/12/2019 SUBJECTIVE: The patient is postoperative day #3 status post posterior C3 through C5 decompression and fusion. The patient's pain is improving slowly, and he is also mobilizing a bit more. He has been able to walk back and forth to the bathroom. He has not done much walking in the halls otherwise. His KAI output continues to trend down and was 50 mL over last night. OBJECTIVE: On exam this morning, the patient is sitting up in bed. He is in no acute distress. He has free active range of all extremities. No focal motor weakness. His incision is clean, dry, and intact. ASSESSMENT AND PLAN: We will remove his KAI drain today and discontinue his IV abx. We will try to mobilize more, and I have advised him to work with Physical Therapy today. I anticipate home tomorrow. Job ID: [id number] [facility]
[2019-05-12] MEDS: Pregabalin 50 MG CAP PO SCH (09:24)
[2019-05-12] MEDS: metFORMIN 500 MG TAB PO SCH ×2 (09:24→18:03)
[2019-05-12] MEDS: Atorvastatin Calcium 20 MG TAB PO SCH (09:24)
[2019-05-12] MEDS: Insulin Glargine 15 UNITS in Pre-Filled Syringe 1 EACH SC SCH (09:27)
[2019-05-12] MEDS: Sodium Chloride 0.9% 1,000 ML IV SCH ×2 (10:08→20:33)
[2019-05-12] MEDS: Cyclobenzaprine 10 MG TAB PO SCH ×2 (14:07→14:08)
[2019-05-12] MEDS: HYDROmorphone 10 mg/100 ml CADD IV PRN (14:09)
--- NOTE | 2019-05-12 20:05 | PDOC.HOSPP ---
- Subjective Encounter Date: 05/12/19 Encounter Time: 10:45 Subjective: Patient seen and examined for med mngt. Pain controlled. No fever or chills. No new complaints. No overnight events - Objective Vital Signs & Weight: Vital Signs (12 hours) Temp Pulse Resp BP Pulse Ox 05/12/19 19:49 98.2 F 81 16 95/57 L 95 05/12/19 14:53 97.8 F 76 18 127/75 92 L 05/12/19 11:05 97.8 F 78 18 97/57 L 97 Weight Weight 340 lb I&O: 05/11/19 05/12/19 05/13/19 06:59 06:59 06:59 Intake Total 3960 2930 3360 Output Total 4320 1255 15 Balance -360 0675 3345 Result Diagrams: 05/10/19 04:33 05/10/19 04:33 Additional Labs: Accuchecks 05/12/19 05/12/19 05/12/19 15:02 10:59 05:15 POC Glucose 174 H 121 H 152 H 05/12/19 05/11/19 02:19 20:45 POC Glucose 158 H 176 H Hospitalist ROS - Review of Systems Respiratory: denies: cough, dry, shortness of breath, hemoptysis, SOB with excertion, pleuritic pain, sputum, wheezing, other Cardiovascular: denies: chest pain, palpitations, orthopnea, paroxysmal noc. dyspnea, edema, light headedness, other - Medication Medications: Active Medications Generic Name Dose Route Start Last Admin Trade Name Freq PRN Reason Stop Dose Admin Acetaminophen 1,000 mg 05/10/19 13:00 05/12/19 18:03 Tylenol PO 05/13/19 13:01 1,000 mg Q6H EVELIN Administration Atorvastatin Calcium 20 mg 05/10/19 09:00 05/12/19 09:24 Lipitor PO 20 mg QAM EVELIN Administration Diphenhydramine HCl 25 mg 05/09/19 19:35 05/12/19 18:03 Benadryl PO 25 mg Q3H PRN Administration Itching Fentanyl 100 mcg 05/11/19 11:00 05/11/19 11:28 Duragesic TD 100 mcg Q3D EVELIN Administration Hydromorphone HCl 0 mg 05/10/19 12:06 05/12/19 14:09 Dilaudid Cadd IV 10 mg INF PRN Administration Pain Sodium Chloride 1,000 mls @ 75 mls/hr 05/09/19 13:43 05/12/19 10:08 Normal Saline 0.9% IV Not Given .[id number] EVELIN Insulin Glargine 15 units/ 0.15 mls @ 0 mls/hr 05/11/19 09:00 05/12/19 09:27 Miscellaneous Medication SC 0.15 mls QAM EVELIN Administration Insulin Glargine 10 units/ 0.1 mls @ 0 mls/hr 05/11/19 21:00 05/11/19 21:34 Miscellaneous Medication SC 0.1 mls HS EVELIN Administration Insulin Human Lispro 0 units 05/09/19 17:03 05/12/19 18:03 Humalog SC 2 unit .MODERATE SLIDING SC PRN Administration Moderate Correctional Scale Metformin HCl 1,000 mg 05/09/19 17:00 05/12/19 18:03 Glucophage PO 1,000 mg BID-WM EVELIN Administration Pregabalin 200 mg 05/11/19 09:00 05/12/19 09:24 Lyrica PO 200 mg QAM EVELIN Administration Tamsulosin HCl 0.4 mg 05/10/19 06:00 05/12/19 06:08 Flomax PO 0.4 mg 0600 EVELIN Administration Tizanidine HCl 4 mg 05/09/19 13:43 05/12/19 18:03 Zanaflex PO 4 mg Q6H PRN Administration MUSCLE SPASM - Exam General Appearance: NAD Heart: RRR, no gallops Respiratory: no wheezes, no ronchi Gastrointestinal: non-tender, normal bowel sounds Extremities: no cyanosis Neurological: no new deficit Hosp A/P - Plan DVT proph w/SCDs DM2 HLD Chronic pain Morbid obesity BMI 46.1 PLAN: Cont Lantus at 15 units QAM and 10 units HS Cont sliding scale Cont Metformin Invokana not in hospital formulary Cont Statins
[2019-05-12] MEDS: Insulin Glargine 10 UNITS in Pre-Filled Syringe 1 EACH SC SCH (20:18)
[2019-05-13] MEDS: Acetaminophen 500 MG TAB PO SCH ×3 (00:15→12:01)
[2019-05-13] MEDS: diphenhydrAMINE 25 MG CAP PO PRN ×3 (00:15→12:01)
[2019-05-13] MEDS: tiZANidine HCl 4 MG TAB PO PRN ×3 (00:15→12:01)
[2019-05-13] MEDS: HumaLOG 300 UNITS/3 ML VIAL SC PRN ×4 (02:46→20:25)
[2019-05-13] MEDS: HYDROmorphone 10 mg/100 ml CADD IV PRN (05:05)
[2019-05-13] MEDS: Tamsulosin HCl 0.4 MG CAP PO SCH (06:12)
[2019-05-13] MEDS: metFORMIN 500 MG TAB PO SCH ×2 (09:08→16:13)
[2019-05-13] MEDS: Pregabalin 50 MG CAP PO SCH ×2 (09:08→20:24)
[2019-05-13] MEDS: Atorvastatin Calcium 20 MG TAB PO SCH (09:08)
[2019-05-13] MEDS: Insulin Glargine 15 UNITS in Pre-Filled Syringe 1 EACH SC SCH (09:09)
--- NOTE | 2019-05-13 09:34 | PRG ---
DATE OF SERVICE: 05/13/2019 SUBJECTIVE: The patient is postoperative day #4, status post C3-C5 posterior decompression and fusion. The patient has a history of high dose narcotic use prior to this admission and has been quite difficult to wean from the CHIEF CONTROLLER. He had been provided a Rx by his PM physician Dr. Francis for dilaudid PO 8mg PO Q6h to begin at discharge along with his 25mg fentanyl patch Q72H, 30mg ER cyclobenzapril and 225mg lyrica BID. He is concerned that his is not going to be adequate when he returns home particularly since he has had a 100 mcg fentanyl patch at our facility. He does report he is feeling better today and he has mobilized short distances back and forth to the bathroom. OBJECTIVE: On exam this morning, he is awake, alert, in no acute distress. He has free active range of motion of all extremities. No focal motor weakness. His incision is clean, dry, and intact. PLAN: I will go ahead and discontinue his CHIEF CONTROLLER, and I have ordered his home dose of Dilaudid which is 8 mg p.o. q.6h p.r.n. in conjunction with his other pain medications. I will reach out to his Pain Management physician and try to arrange close followup to assist with his pain management at home. We will see how he does off the CHIEF CONTROLLER today. The patient is not comfortable discharging home today but hopefully will be controlled on his prior home medications and be able to dc over the weekend. Job ID: [id number] MTDD
[2019-05-13] MEDS: Sodium Chloride 0.9% 1,000 ML IV SCH (10:42)
[2019-05-13] MEDS: HYDROmorphone 2 MG TAB PO PRN ×3 (10:49→22:29)
[2019-05-13] MEDS: Ketorolac Tromethamine 30 MG/ML VIAL IVP PRN ×2 (13:35→19:34)
[2019-05-13] MEDS: HYDROcodone/Acetaminophen 10/325 mg Tablet PO PRN ×2 (13:35→19:36)
[2019-05-13] MEDS: Clindamycin 150 MG CAP PO SCH ×2 (16:13→20:24)
[2019-05-13] MEDS: Cyclobenzaprine 10 MG TAB PO PRN (16:13)
--- NOTE | 2019-05-13 17:46 | PDOC.HOSPP ---
- Subjective Encounter Date: 05/13/19 Encounter Time: 09:15 Subjective: Patient seen and examined for medical mngt. Pain controlled. No N/V. Toleraing PO. No new complaints. No overnight events - Objective Vital Signs & Weight: Vital Signs (12 hours) Temp Pulse Resp BP BP Pulse Ox 05/13/19 15:06 98.2 F 70 18 143/76 H 92 L 05/13/19 11:36 98.3 F 77 18 161/81 H 93 L 05/13/19 07:22 98.1 F 77 18 166/89 H 93 L 05/13/19 06:12 159/84 H Weight Weight 340 lb I&O: 05/12/19 05/13/19 05/14/19 06:59 06:59 06:59 Intake Total 2930 3360 810 Output Total 1255 15 Balance 1675 3345 810 Result Diagrams: 05/10/19 04:33 05/10/19 04:33 Additional Labs: Accuchecks 05/13/19 05/13/19 05/13/19 16:12 10:41 05:07 POC Glucose 166 H 167 H 150 H 05/13/19 05/12/19 02:11 20:02 POC Glucose 205 H 171 H Hospitalist ROS - Review of Systems Respiratory: denies: cough, dry, shortness of breath, hemoptysis, SOB with excertion, pleuritic pain, sputum, wheezing, other Cardiovascular: denies: chest pain, palpitations, orthopnea, paroxysmal noc. dyspnea, edema, light headedness, other - Medication Medications: Active Medications Generic Name Dose Route Start Last Admin Trade Name Freq PRN Reason Stop Dose Admin Hydrocodone Bitart/Acetaminophen 1 tab 05/13/19 13:08 05/13/19 13:35 [place] 10/325 PO 1 tab Q6H PRN Administration Moderate Pain (4-6) Atorvastatin Calcium 20 mg 05/10/19 09:00 05/13/19 09:08 Lipitor PO 20 mg QAM EVELIN Administration Clindamycin HCl 300 mg 05/13/19 17:00 05/13/19 16:13 Cleocin PO 05/22/19 17:01 300 mg QID EVELIN Administration Cyclobenzaprine HCl 10 mg 05/13/19 13:31 05/13/19 16:13 Flexeril PO 10 mg Q8H PRN Administration Muscle Spasm Diphenhydramine HCl 25 mg 05/09/19 19:35 05/13/19 12:01 Benadryl PO 25 mg Q3H PRN Administration Itching Fentanyl 100 mcg 05/11/19 11:00 05/11/19 11:28 Duragesic TD 100 mcg Q3D EVELIN Administration Hydromorphone HCl 8 mg 05/13/19 08:49 05/13/19 16:13 Dilaudid PO 8 mg Q6H PRN Administration Severe Pain (7-10) Sodium Chloride 1,000 mls @ 75 mls/hr 05/09/19 13:43 05/13/19 10:42 Normal Saline 0.9% IV Not Given .[id number] EVELIN Insulin Glargine 15 units/ 0.15 mls @ 0 mls/hr 05/11/19 09:00 05/13/19 09:09 Miscellaneous Medication SC 0.15 mls QAM EVELIN Administration Insulin Glargine 10 units/ 0.1 mls @ 0 mls/hr 05/11/19 21:00 05/12/19 20:18 Miscellaneous Medication SC 0.1 mls HS EVELIN Administration Insulin Human Lispro 0 units 05/09/19 17:03 05/13/19 12:01 Humalog SC 2 unit .MODERATE SLIDING SC PRN Administration Moderate Correctional Scale Insulin Human Lispro 0 units 05/09/19 17:03 05/13/19 02:46 Humalog SC 2 units .BEDTIME SLIDING SC PRN Administration Bedtime Correctional Scale Ketorolac Tromethamine 15 mg 05/13/19 13:09 05/13/19 13:35 Toradol IVP 05/18/19 13:10 15 mg Q6H PRN Administration Mild Pain (1-3) Metformin HCl 1,000 mg 05/09/19 17:00 05/13/19 16:13 Glucophage PO 1,000 mg BID-WM EVELIN Administration Pregabalin 200 mg 05/13/19 09:00 05/13/19 09:08 Lyrica PO 200 mg BID EVELIN Administration Tamsulosin HCl 0.4 mg 05/10/19 06:00 05/13/19 06:12 Flomax PO 0.4 mg 0600 EVELIN Administration - Exam General Appearance: NAD Respiratory: no wheezes, no ronchi Gastrointestinal: non-tender, non-distended, normal bowel sounds Extremities: no cyanosis Neurological: no new deficit Hosp A/P - Plan DM2 HLD Chronic pain Morbid obesity BMI 46.1 PLAN: Increase Lantus to 15 units BID Cont moderate sliding scale/Metformin Cont Statins Will s/o
[2019-05-13] MEDS ORDERED: Insulin Glargine 15 UNITS in Pre-Filled Syringe 1 EACH SC SCH (21:00)
[2019-05-14] MEDS: Cyclobenzaprine 10 MG TAB PO PRN ×3 (00:38→15:26)
[2019-05-14] MEDS: HYDROcodone/Acetaminophen 10/325 mg Tablet PO PRN ×3 (02:02→15:26)
[2019-05-14] MEDS: Ketorolac Tromethamine 30 MG/ML VIAL IVP PRN (02:02)
[2019-05-14] MEDS: Tamsulosin HCl 0.4 MG CAP PO SCH (06:07)
[2019-05-14] MEDS: HYDROmorphone 2 MG TAB PO PRN ×2 (06:07→12:02)
[2019-05-14] MEDS: Insulin Glargine 15 UNITS in Pre-Filled Syringe 1 EACH SC SCH (08:54)
[2019-05-14] MEDS: Pregabalin 50 MG CAP PO SCH (08:54)
[2019-05-14] MEDS: metFORMIN 500 MG TAB PO SCH (08:54)
[2019-05-14] MEDS: Clindamycin 150 MG CAP PO SCH ×2 (08:54→12:01)
[2019-05-14] MEDS: Atorvastatin Calcium 20 MG TAB PO SCH (08:55)
[2019-05-14] MEDS: fentaNYL 100 mcg/hour Patch TD SCH (11:03)
[2019-05-14 12:21] VITALS: BP 119/69; TEMP 98
--- NOTE | 2019-05-14 12:21 | PRG ---
DATE OF SERVICE: 05/14/2019 This is Tay Nicolas PA-C dictating a report for Michael Barrera MD. Mr. Blake is postoperative day #5, having undergone C3 through C5 posterior cervical fusion. There was some issues with pain medication and pain management yesterday; however, the patient is feeling much better today. We will plan for discharge. He has excellent strength in all the extremities. He is comfortably resting in bed. He has a scheduled followup with Pain Management on Thursday. Again, he is doing well, neurologically intact and we will discharge him today. Job ID: [id number]
--- NOTE | 2019-05-16 18:32 | EKG ---
Test Reason : PREOP Blood Pressure : / mmHG Vent. Rate : 080 BPM Atrial Rate : 080 BPM P-R Int : 166 ms QRS Dur : 112 ms QT Int : 386 ms P-R-T Axes : -14 -53 026 degrees QTc Int : 445 ms Normal sinus rhythm Left anterior fascicular block Abnormal ECG When compared with ECG of 04-APR-2019 08:37, (Unconfirmed) No significant change was found Confirmed by MELVIN PIERRE, DR. S. ([id number]) on 05/16/2019 6:32:01 PM Referred By: DELPHINE Confirmed By:DR. Otilio CHARLES MD
== END 2019-05-14 15:43 | disposition home or self-care (01) | DRG 472 ==
LOC: SURG A 07:38
PROVIDERS: ADMIT Neurological Surgery; ATTEND Neurological Surgery
PROC: 0RG20K1 Fusion of 2 or more Cervical Vertebral Joints with Nonautologous Tissue Substitute, Posterior Approach, Posterior Column, Open Approach (ICD-10-PCS; principal; 2019-05-09)
DX: M48.02 Spinal stenosis, cervical region (principal); Z68.42 Body mass index [BMI] 45.0-49.9, adult; G89.29 Other chronic pain; E66.01 Morbid (severe) obesity due to excess calories; E78.5 Hyperlipidemia, unspecified; E11.9 Type 2 diabetes mellitus without complications; Z88.0 Allergy status to penicillin; Z88.8 Allergy status to other drugs, medicaments and biological substances
CPT/HCPCS: 36415; 36416; 76000; 80048; 85025; 93005; 93010; C1713; C1768; J1170; J1815; J1885; J1956; J2250; J2270; J2405; J2704; J3010; J3370; J3490; Q0163